=== PATIENT | female | born 1960 | race Caucasian/White ===

== ENCOUNTER 2017-07-21 08:20 | Emergency (ER) | payer BC, OTHER ==
[~2017-07-21] VITALS: Ht 165.1 cm; Wt 91.4 kg
[2017-07-21 08:22] VITALS: Ht 165.1 cm; Wt 91.4 kg
[2017-07-21 08:56] VITALS: BP 161/87; PULSE 109; TEMP 36.8; O2SAT 96
--- NOTE | 2017-07-21 13:49 | EMERGENCY ROOM VISIT NOTE ---
History Report prepared by Sam: Bridgett Quigley Under the Supervision of: Dr. Vamshi Hay D.O. First contact with patient: 08:27 Chief Complaint: MENTAL HEALTH EVALUATION Stated Complaint: STRESS History of Present Illness The patient is a 56 year old female who presents to the Emergency Room for a mental health evaluation. The patient states she has a lot of anxiety and stress due to an "isolated incident". The patient states "I have an old, deep wound being ripped open again and I am not prepared for it". She reports she was dismissed from [employer] after working there for 25 years for "mislabeling a sandwich". The patient states she has been working in [employer] again for the the past 8 years. The patient states there is a new employee at work who is "trying to undermine my work and pull me down". She states this "threat" of her job is causing her extreme stress. The patient states she left work this morning early because she was concerned about her blood pressure being high. She reports "I am only here to have my blood pressure checked". The patient reports she is "bad" at taking her blood pressure. The patient reports she has an appointment with her PCP this week. She does not want any blood work or further testing. She denies any suicidal or homicidal ideations. No auditory or visual hallucinations. Source of History: patient Position: other (generalized) Quality: other (mental healt evaluation) Modifying Factors (Worsening): other (none) Review of Systems See HPI for pertinent positives & negatives. A total of 10 systems reviewed and were otherwise negative. Past Medical & Surgical Medical Problems: (1) Hypertension Family History Patient reports no known family medical history. Social History Smoking Status: Never Smoker Occupation Status: employed Current/Historical Medications Miscellaneous Medications None (Patient States No Home Meds) Allergies Coded Allergies: No Known Allergies (Verified Allergy, Unknown, 06/09/02) Uncoded Allergies: N (Allergy, Unknown, 06/09/02) NKA (Allergy, Unknown, 06/09/02) NONE (Allergy, Unknown, 06/09/02) Physical Exam Vital Signs Date Time Temp Pulse Resp B/P (MAP) Pulse Ox O2 Delivery O2 Flow Rate FiO2 07/21/17 08:56 36.8 109 18 161/87 96 07/21/17 08:44 109 18 161/87 96 Room Air 07/21/17 08:22 36.8 118 18 173/81 96 Room Air Physical Exam GENERAL: Sitting up in bed, alert, well appearing, well nourished, no distress, non-toxic EYE EXAM: normal conjunctiva. OROPHARYNX: no exudate, no erythema, lips, buccal mucosa, and tongue normal and mucous membranes are moist NECK: supple, no nuchal rigidity, no adenopathy, non-tender LUNGS: Clear to auscultation. Normal chest wall mechanics HEART: no murmurs, S1 normal and S2 normal ABDOMEN: abdomen soft, non-tender, normo-active bowel sounds, no masses, no rebound or guarding. UPPER EXTREMITIES: upper extremities are grossly normal. LOWER EXTREMITIES: No pitting edema. NEURO EXAM: Normal sensorium, cranial nerves II-XII grossly intact, normal speech, no gross weakness of arms, no gross weakness of legs. PSYCH: Denies suicidal and homicidal ideations. Denies auditory and visual hallucinations. Medical Decision & Procedures ED Course ED COURSE: Vital signs were reviewed and showed tachycardic The patients medical record was reviewed The above diagnostic studies were performed and reviewed. ED treatments and interventions as stated above. 0833: The patient was evaluated in room A8. A complete history and physical examination was performed. 0858: Upon reevaluation, the patient is resting comfortably.I discussed my findings with the patient and she understands and agrees with the treatment plan. Based on the patients age, coexisting illnesses, exam and lab findings the decision to treat as an outpatient was made. The patient remained stable while under my care. The patient appeared well at the time of discharge. Medical Decision Differential diagnosis: Etiologies such as mood disorder, infection, hypoglycemia, electrolyte abnormalities, cardiac sources, intracerebral event, toxicologic, neurologic, as well as others were entertained. Patient is a 56-year-old female who came into the ER for evaluation of her blood pressure. She attempted to go to urgent care but they were not open. She does want her blood pressure checked as she left her job because she was worked up from there. She denies any suicidal or homicidal ideations. She has a clear line of thought. She has clear insight. No previous visits for any psychiatric issues as far as I can tell. Upon presentation patient requested to be discharged when she got her blood pressure checked. I was able to talk to evaluate her. She did not want any blood work done or to speak with our psychiatric field care manager's. She does not appear to be a danger to herself or anyone else. She would like to go home so she can rest as she does not feel going back to work will be beneficial at this time as she is so worked up. Following her conversation I had no grounds on holding her and did discharge her to follow-up with her PCP as an outpatient for her anxiety and elevated blood pressure which I suspect is secondary to being worked up. Discussed with Pt concerning signs and symptoms to watch out for. Pt was instructed to follow up with their PCP and discussed with the patient their option to return to the ED at anytime for persistent or worsening symptoms. The appropriate anticipatory guidance and out-patient management, including indications for return to the emergency department, were explained at length to the patient and understood. Medication Reconcilliation Current Medication List: was personally reviewed by me Blood Pressure Screening Patient's blood pressure: Elevated blood pressure Blood pressure disposition: Referred to PCP Impression Primary Impression: Anxiety Additional Impression: HTN (hypertension) Scribe Attestation The scribe's documentation has been prepared under my direction and personally reviewed by me in its entirety. I confirm that the note above accurately reflects all work, treatment, procedures, and medical decision making performed by me. Departure Information Dispostion Home / Self-Care Referrals No Doctor, Assigned (PCP) Forms HOME CARE DOCUMENTATION FORM, IMPORTANT VISIT INFORMATION Patient Instructions ED HTN Established, My [facility] Additional Instructions Please follow up with your primary care doctor with in the next 24 hours. Any worsening of your symptoms, please return to the ED immediately. This includes any fevers greater than 100.4, chest pain, shortness breath, dizziness, lightheadedness, persistent nausea, vomiting, unable to eat or drink, or any other concerning signs or symptoms from your standpoint. Your blood pressure was found to be elevated which I favor is secondary to you being worked up/anxiety. I will follow-up with your primary care doctor as discussed. Any thoughts of wanting to harm yourself or harm anyone else please return to the ER or if you need someone to talk to as well. Problem Qualifiers Additional Impression: HTN (hypertension) Hypertension type: unspecified Qualified Codes: I10 - Essential (primary) hypertension
== END 2017-07-21 08:58 | disposition home or self-care (01) ==
LOC: C.EDB 08:22 → C.EDA 08:58
DX: F41.9 Anxiety disorder, unspecified (principal); I10 Essential (primary) hypertension